=== PATIENT | female | born 1945 | race Caucasian/White ===

== ENCOUNTER 2020-06-08 10:43 | Emergency (ER) | payer MEDICARE ==
[2020-06-08] MEDS ORDERED: Boostrix 0.5 ML (Tdap) VIAL ONE (11:40)
[2020-06-08] MEDS ORDERED: Lidocaine 1% w/Epinephrine 1:100K 20 ML VIAL ONE (11:45)
--- NOTE | 2020-06-08 11:51 | RAD ---
LEFT ANKLE 3 VIEWS: HISTORY: Trauma, left ankle pain. FINDINGS/IMPRESSION: No acute fracture or dislocation is identified. The ankle mortise is maintained. POS: [facility]
--- NOTE | 2020-06-08 12:01 | CT ---
CT BRAIN WITHOUT CONTRAST: Date: 06/08/2020 HISTORY: Fall. No loss of consciousness. Headache. FINDINGS: There are no previous exams for comparison. There are changes of chronic small vessel ischemic disease in the periventricular white matter. The v entricular size is appropriate and the basilar cisterns are patent. No evidence of acute infarct, hem orrhage, midline shift, or abnormal extra-axial fluid collections are seen. The bony calvarium is int act. The visualized paranasal sinuses and mastoid air cells are well aerated. IMPRESSION: No CT evidence of acute intracranial process. POS: [facility]
--- NOTE | 2020-06-08 12:02 | CT ---
CT CERVICAL SPINE WITH CORONAL AND SAGITTAL REFORMATIONS AND NO IV CONTRAST: Date: 06/08/2020 HISTORY: Fall. Neck pain. FINDINGS: Degenerative changes are present. No acute fracture, traumatic subluxation, or facet malalignment is identified. The prevertebral soft tissues are normal. No apical pneumothoraces are seen. IMPRESSION: No CT evidence of acute cervical spine fracture or traumatic subluxation. POS: [facility]
== END 2020-06-08 12:55 | disposition home or self-care (01) ==
LOC: MADERS 10:43
DX: S01.112A Laceration without foreign body of left eyelid and periocular area, initial encounter (principal); S90.512A Abrasion, left ankle, initial encounter; R14.0 Abdominal distension (gaseous); M06.9 Rheumatoid arthritis, unspecified; I25.10 Atherosclerotic heart disease of native coronary artery without angina pectoris; E11.9 Type 2 diabetes mellitus without complications; E03.9 Hypothyroidism, unspecified; K21.9 Gastro-esophageal reflux disease without esophagitis; I10 Essential (primary) hypertension; Z79.82 Long term (current) use of aspirin; Z79.891 Long term (current) use of opiate analgesic; Z79.84 Long term (current) use of oral hypoglycemic drugs; Z79.899 Other long term (current) drug therapy; Z87.09 Personal history of other diseases of the respiratory system; W19.XXXA Unspecified fall, initial encounter
CPT/HCPCS: 12011; 70450; 72125; 90471; 90715

== ENCOUNTER 2020-08-05 09:51 | Emergency (ER) | payer MEDICARE ==
[2020-08-05 10:33] LABS: #Basophils 0.1 thou/uL (0.0-0.2); #Eosinphils 0.2 thou/uL (0.0-0.7); #Lymphocytes 1.2 thou/uL (1.20-3.40); #Monocytes 0.5 thou/uL (0.11-0.59); #Neutrophils 2.5 thou/uL (1.40-6.50); %Basophils 1.9 % (0.0-1.0); %Eosinophils 5.3 % (0.0-10.0); %Lymphocytes 26.2 % (21.0-51.0); %Monocytes 11.6 % (0.0-10.0); %Neutrophils 55.1 % (42.0-75.0); Hemoglobin 9.8 g/dL (12.0-16.0); Mean Corpuscular HGB CONC 31.7 g/dL (32.0-36.0); Mean Corpuscular Hemoglobin 25.9 pg (27.0-31.0); Mean Corpuscular Volume 81.8 fL (78.0-98.0); Mean Platelet Volume 6.2 fL (7.4-10.4); Platelet Count 255 thou/uL (130-400); RBC Distribution Width 13.1 % (11.5-14.5); Red Blood Cell (RBC) Count 3.77 mill/uL (4.20-5.40); White Blood Cell (WBC) Count 4.5 thou/uL (4.8-10.8)
[2020-08-05 10:35] LABS: INR-International Normal Ratio 0.9; PTT 25.6 sec (22.9-36.1); Prothrombin Time 12.6 sec (12.0-14.7)
[2020-08-05] MEDS ORDERED: Ondansetron PF 4 MG/2 ML Vial ONE (10:41)
[2020-08-05] MEDS ORDERED: Meclizine HCl 25 MG TAB ONE (10:41)
[2020-08-05 10:46] LABS: ALT (SGPT) 14 U/L (8-55); AST (SGOT) 17 U/L (5-34); Albumin 3.8 g/dL (3.4-4.8); Alkaline Phosphatase 75 U/L (40-110); Anion Gap 14 mmol/L (10-20); BUN (Urea Nitrogen) 19 mg/dL (9.8-20.1); Bilirubin, Total 0.3 mg/dL (0.2-1.2); CK (CPK) 81 U/L (29-168); Calc. Creatinine Clearance 0 mL/min (70-130); Calcium 8.8 mg/dL (7.8-10.44); Carbon Dioxide 26 mmol/L (23-31); Chloride 102 mmol/L (98-107); Globulin 3.3 g/dL (2.4-3.5); Glucose 136 mg/dL (83-110); Potassium 4.3 mmol/L (3.5-5.1); Protein, Total 7.1 g/dL (5.8-8.1); Sodium 138 mmol/L (136-145)
[2020-08-05] MEDS ORDERED: Iopamidol 370 76% 125 ML VIAL FS ONE (10:56)
[2020-08-05] MEDS ORDERED: Aspirin Chewable 81 MG TAB ONE (12:12)
[2020-08-05 14:27] LABS: Bilirubin Negative (Negative); Blood, Urine Trace (Negative); Clarity Cloudy (Clear); Glucose, Urine (Dipstick) Negative (Negative); Ketone, Urine Negative (Negative); Leukocyte Small (Negative); Nitrite Negative (Negative); Protein, Urine (Dipstick) Negative (Neg-Trace); Specific Gravity, Urine 1.015 (1.005-1.030); Urobilinogen 0.2 mg/dL (Less than 2)
[2020-08-05 14:36] LABS: Bacteria/HPF 3+ HPF (None Seen); RBC/HPF 0-3 HPF (0-3); WBC/HPF 21-50 HPF (0-3)
== END 2020-08-05 18:12 | disposition short-term general hospital (02) ==
LOC: MADERS 09:51
DX: I10 Essential (primary) hypertension (principal); R42 Dizziness and giddiness; K21.9 Gastro-esophageal reflux disease without esophagitis; M06.9 Rheumatoid arthritis, unspecified; I25.10 Atherosclerotic heart disease of native coronary artery without angina pectoris; E11.9 Type 2 diabetes mellitus without complications; E03.9 Hypothyroidism, unspecified; J84.10 Pulmonary fibrosis, unspecified; Z79.84 Long term (current) use of oral hypoglycemic drugs; Z79.899 Other long term (current) drug therapy; Z79.82 Long term (current) use of aspirin; Z79.891 Long term (current) use of opiate analgesic
CPT/HCPCS: 70450; 70496; 70498; 71045; 80053; 81003; 81015; 82550; 84484; 85025; 85610; 85730; 87077; 87086; 87186; 93005; 94760; 96374; J2405; Q9967

== ENCOUNTER 2020-12-28 10:22 | Outpatient (CLI) | payer MEDICARE | END 2020-12-28 10:23 | disposition home or self-care (01) | LOC: MADRAD 10:22 | PROVIDERS: ATTEND Family Medicine | DX: J44.9 Chronic obstructive pulmonary disease, unspecified (principal) | CPT/HCPCS: 71046 ==